=== PATIENT | male | born 1950 | race Caucasian/White ===

== ENCOUNTER → 2016-06-03 | Day surgery (SDC) | payer BC ==
[2016-05-27 08:49] VITALS: Ht 180.3 cm; Wt 106.8 kg
[2016-05-27 11:51] LABS: BASO % 0.7 %; BASO ABS # 0.04 K/uL (0-0.2); COMPLETE YES; EOS % 2.2 %; HEMATOCRIT 45.5 % (42-52); IG% 0.3 %; LYMPH ABS # 2.16 K/uL (1.2-3.4); MEAN CELL VOLUME 89.6 fL (80-100); MEAN CORPUSCULAR HEMOGLOBIN 30.5 pg (25-34); MEAN CORPUSCULAR HGB CONC 34.1 g/dl (32-36); MEAN PLATELET VOLUME 9.4 fL (7.4-10.4); MONO % 7.7 %; NEUT % 52.1 %; PLATELET COUNT 245 K/uL (130-400); RED BLOOD COUNT 5.08 M/uL (4.7-6.1); WHITE BLOOD COUNT 5.84 K/uL (4.8-10.8)
[2016-05-27 12:29] LABS: BUN/CREATININE RATIO 17.4 (10-20); CALCIUM 9.1 mg/dl (8.5-10.1); CREATININE 0.86 mg/dl (0.60-1.40); POTASSIUM 3.9 mmol/L (3.5-5.1)
[2016-05-27 12:32] LABS: ALB/GLOB RATIO 1.3 (0.9-2)
[~2016-06-03] VITALS: Ht 180.3 cm; Wt 106.8 kg
[~2016-06-03] MED LIST: ASPI-435 PO; BUPIVACAINE 0.5 % 5 MG/1 ML PF 10ML VIAL ONE; CEFAZOLIN 2000 MG/60 ML D5W IV SCH; CLIN1GEL5 TOP; DEXAMETHASONE SOD INJ 4 MG/ML VIAL ONE; EpHEDrine SULFATE 50MG/5ML SYR ONE; EpINEphrine INJ 1MG/ML AMP 1 MG/ML AMP ONE; FENTANYL CITRATE INJ 50 MCG/1 ML 2 ML VIAL IV PRN; FENTANYL CITRATE INJ 50 MCG/1 ML 2 ML VIAL ONE; GLUCTAB7 PO; HYDR-5688 PO; KETOROLAC TROMETHAMINE 30 MG/ML VIAL ONE; LACTATED RINGER'S 1000ML 1,000 ML IV PRN; LACTATED RINGER'S 1000ML 1,000 ML IV SCH; LIDOCAINE HCL 2% 2 ML VIAL (20MG/ML) ONE; LOSA50TA6 PO; MIDAZOLAM HCL 1 MG/ML 2ML VIAL ONE; OMEP20TA PO; ONDANSETRON INJ 2 MG/ML 2 ML VIAL IV PRN; ONDANSETRON INJ 2 MG/ML 2 ML VIAL ONE; OXYCODONE/ACETAMINOPHEN 5-325 TAB PO PRN; PROPOFOL IV EMULSION 10 MG/ML 20 ML VIAL IV ONE; ROPIVACAINE 0.5% 5 MG/ML 30 ML VIAL ONE; SODIUM CHLORIDE 0.9% 1000ML 1,000 ML IV SCH
--- NOTE | 2016-06-03 07:25 | History & Physical Bridge - [place] ---
H&P Re-Evaluation Bridge Note: I have examined the patient, reviewed the History & Physical and in the interval since the performance of the History & Physical I have noted the following changes of clinical significance: No changes noted
--- NOTE | 2016-06-03 08:43 | [facility] Post Operative Brief Note ---
Immediate Operative Summary Operative Date Jun 03, 2016. Pre-Operative Diagnosis Left knee medial meniscus tear Post-Operative Diagnosis same, DJD MFC AND TROCHLEAR GROOVE Procedure(s) Performed Left Knee Arthroscopy, Partial Medial Meniscectomy Surgeon Dr Graham Watch Leader Surgeon(s) Risa Pérez PA-C Estimated Blood Loss 0 Findings ABOVE Specimens 0 Anesthesia LMA Complication(s) None Disposition Recovery Room / PACU
--- NOTE | 2016-06-03 08:54 | Discharge Instructions-SurgCtr ---
Discharge Instructions Visit Reason for Visit: Left Knee Medial Meniscus Tear S83.242a Discharge Discharge Diagnosis / Problem: SAME ABOVE Discharge Goals Goal(s): Decrease discomfort, Improve function Activity Recommendations Activity Limitations: as noted below Lifting Limitations: gradually increase as tolerated Exercise/Sports Limitations: until after follow-up appointment Weightbearing Status: Left weightbearing (as tolerated) Anesthesia . Post Anesthesia Instructions: If you have had General Anesthesia or IV Sedation: * Do not drive today. * Resume driving when surgeon permits. * Do not make important decisions or sign legal documents today. * Call surgeon for: 1. Temperature elevations greater than 101 degrees F. 2. Uncontrollable pain. 3. Excessive bleeding. 4. Persistent nausea and vomiting. 5. Medication intolerance (nausea, vomiting or rash). * For nausea and vomiting use only clear liquids such as: tea, soda, bouillon until nausea subsides, then gradually increase diet as tolerated. * If you have any concerns or questions, call your surgeon's office. If physician is unavailable and it is an emergency, call 911 or go to the nearest emergency room. . Instructions / Follow-Up Instructions / Follow-Up MEDICATIONS: * Resume previous medications unless instructed otherwise by your surgeon. * Always take pain medication on a full stomach or with food to avoid upset stomach. * Do not drink alcohol or drive while taking narcotics. * Ibuprofen or Tylenol may be taken if narcotic not needed. SPECIAL CARE INSTRUCTIONS: __ None _X_ Keep extremity elevated and iced x 48 hours; apply ice 20-30 minutes 8-10 times/day. May remove at night. __ Crutches __ May discard when able __ Brace/Post-op shoe __ 24 hrs/day __ Remove at night _X_ Dressing __ Maintain until seen in office, may shower with plastic over site _X_ Remove dressings in 24-48 hours and then may shower _X_ Cover incisions with band-aids after showering __ Do not remove steri-strips Call physician if chills or temperature rises above 102 degrees or pain unrelieved by prescribed pain medications. Office [phone] Diet Recommendations Home Diet: resume previous diet Procedures Procedures Performed: Left Knee Arthroscopy, Partial Medial Meniscectomy Pending Studies Studies pending at discharge: no Medical Emergencies . Who to Call and When: Medical Emergencies: If at any time you feel your situation is an emergency, please call 911 immediately. . Non-Emergent Contact Non-Emergency issues call your: Primary Care Provider . . "Provider Documentation" section prepared by Bernardo Pérez.
--- NOTE | 2016-06-03 09:06 | OPERATIVE REPORT ---
DATE OF OPERATION: 06/03/2016 PREOPERATIVE DIAGNOSIS: Medial meniscus tear, left knee. POSTOPERATIVE DIAGNOSES: 1. Displaced medial meniscus tear, left knee. 2. Grade 2-3 articular changes medial femoral condyle about the size of a nickel. 3. 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 4. Synovitis patellofemoral joint. PROCEDURE: 1. Partial lateral meniscectomy. 2. Chondroplasty medial femoral condyle and trochlear groove. 3. Synovectomy knee. SURGEON: Dr. Graham. MED AIDE: Bernardo Pérez PA-C. ANESTHESIOLOGIST: Dr. García. ANESTHESIA: LMA. DRAINS: None. COMPLICATIONS: None. CONDITION: The patient tolerated the procedure well and returned to the recovery room in apparent satisfactory condition. INDICATIONS FOR SURGERY: Connor is a 66-year-old male who has had increasing pain and discomfort, left knee consistent with meniscus tear. Went over treatment options. Would like to go ahead with surgery. Proceed, expected outcomes and side effects were all explained in detail. OPERATION AND FINDINGS: PROCEDURE: The patient was taken to the OR at which time he was placed supine on the operating table, put to sleep by anesthesia department. Examination of the knee was performed. Ligamentous sagastume it was stable. Went ahead and prepped and draped in usual sterile fashion. Arthroscopic examination with anteromedial and anterolateral portals. We found a flap tear of the posterior horn of the medial meniscus, reduced it back and trimmed this piece out. We found articular changes about the size of a nickel of the femoral condyle, grade 2-3. A chondroplasty was done here. We found some synovitis throughout the knee. We did find 4 grade 4 articular lesions of the lateral femoral condyle, trochlear groove interface. A light debridement was done here along with synovectomy and patellofemoral joint. Knee then was copiously irrigated. All cannulas were removed. Portals were closed with 4-0 nylon sutures. 30 mL of ropivacaine, 10 mg of Toradol, and 1 mL of epinephrine was placed in the knee joint. Placed a sterile dressing of Xeroform, 4 x 4, ABD, Sof-Rol, and Hubert bandage and returned back to recovery room in apparent satisfactory condition. SURGICAL FINDINGS: Included: 1. Posterior horn displaced meniscus tear. 2. Grade 2-3 articular changes medial femoral condyle. 3. Grade 4 articular changes to the lateral aspect of the trochlear groove lateral femoral condyle, left knee. I attest to the content of the Intraoperative Record and any orders documented therein. Any exceptio ns are noted below.
--- NOTE | 2016-06-03 09:31 | Anesthesia Progress Nt - [facility] ---
Anesthesia Post Op Note Date & Time Jun 03, 2016 at 09:30 Vital Signs Pain Intensity: 5.0 Vital Signs Past 12 Hours Date Time Temp Pulse Resp B/P Pulse Ox O2 Delivery O2 Flow Rate FiO2 06/03/16 09:07 72 18 100 06/03/16 09:07 73 18 06/03/16 09:03 133/83 06/03/16 09:02 73 14 99 06/03/16 09:02 74 14 06/03/16 09:01 66 13 99 06/03/16 09:01 66 13 06/03/16 08:58 127/74 06/03/16 08:56 36.9 85 18 128/79 97 Mask 8 06/03/16 08:56 86 16 06/03/16 08:56 85 16 99 06/03/16 07:24 36.5 68 16 127/82 97 Room Air Notes Mental Status: alert / awake / arousable, participated in evaluation Pt Amnestic to Procedure: Yes Nausea / Vomiting: adequately controlled Pain: adequately controlled Airway Patency, RR, SpO2: stable & adequate BP & HR: stable & adequate Hydration State: stable & adequate Anesthetic Complications: no major complications apparent Pt doing well.
[2016-06-03 09:50] VITALS: TEMP 36.3
[2016-06-03 10:15] VITALS: BP 120/75; PULSE 63; O2SAT 98
--- NOTE | 2016-06-05 09:45 | EDITING REQUIRED CODING QUERY ---
CQMENISCUS TEAR To promote full compliance with coding requirements relating to patient care physician participation is requested in all cases of stove tender uncertainty. Please assist us with the question(s) below: Please specify the type of Meniscus Tear by placing an "X" within the parenthesis (). If other please document type. () Current Injury () Old Injury DOS 06/03/16 () Other: (Please Specify) Thank you Susan Zeng
--- NOTE | 2016-06-11 11:07 | EDITING REQUIRED CODING QUERY ---
CQMENISCUS TEAR To promote full compliance with coding requirements relating to patient care physician participation is requested in all cases of certified real estate appraiser uncertainty. Please assist us with the question(s) below: Please specify the type of Meniscus Tear by placing an "X" within the parenthesis (). If other please document type. () Current Injury DOS 06/03/16 () Old Injury () Other: (Please Specify) QUERY WAS SIGNED AND RETURNED BUT THERE IS NO CHECK ON ANY OF THE BOXES. THANKS YOU FOR YOUR HELP Thank you Susan Zeng
--- NOTE | 2016-07-04 10:25 | EDITING REQUIRED CODING QUERY ---
CQMENISCUS TEAR To promote full compliance with coding requirements relating to patient care physician participation is requested in all cases of medical record librarian uncertainty. Please assist us with the question(s) below: Please specify the type of Meniscus Tear by placing an "X" within the parenthesis (). If other please document type. (x) Current Injury DOS 06/03/16 () Old Injury () Other: (Please Specify) YOU SIGNED QUERY BUT FORGOT TO [facility] IF THIS IS INJURY OR OTHER. THANK YOU Thank you Susan Zeng
== END | disposition home or self-care (01) ==
LOC: X.SURG 06:59
PROVIDERS: ATTEND Orthopaedic Surgery
DX: S83.242A Other tear of medial meniscus, current injury, left knee, initial encounter (principal); M25.562 Pain in left knee; M05.06 Felty's syndrome, knee; M17.12 Unilateral primary osteoarthritis, left knee; M65.9 Synovitis and tenosynovitis, unspecified; X58.XXXA Exposure to other specified factors, initial encounter; Y92.89 Other specified places as the place of occurrence of the external cause